=== PATIENT | female | born 1980 | race Asian ===

== ENCOUNTER 2021-08-29 22:35 | Emergency (ER) | payer OTHER ==
[2021-08-29 22:43] VITALS: TEMP 97.6; BMI 18.2
[2021-08-30 01:30] VITALS: BP 111/71; PULSE 72
== END 2021-08-30 00:35 | disposition short-term general hospital (02) ==
LOC: JER 22:35 → JERFT 22:35 → JER 08-30 00:35
DX: S60.452A Superficial foreign body of right middle finger, initial encounter (principal); W46.1XXA Contact with contaminated hypodermic needle, initial encounter
CPT/HCPCS: 99283-25

== ENCOUNTER 2024-02-19 17:29 | Emergency (ER) | payer OTHER ==
[2024-02-19 17:50] VITALS: BP 136/87; PULSE 95; RESP 18; TEMP 98.4; BMI 27.3
[2024-02-19] MEDS ORDERED: SILVER SULFADIAZINE 1% TOP CREAM 50 GM JAR TP ONE (19:24)
[2024-02-19] MEDS: SILVER SULFADIAZINE 1% TOP CREAM 50 GM JAR TP ONE (19:29)
== END 2024-02-19 20:07 | disposition home or self-care (01) ==
LOC: JERFT 17:29 → JER 17:29 → JERFT 20:07
DX: T23.131A Burn of first degree of multiple right fingers (nail), not including thumb, initial encounter (principal); T20.10XA Burn of first degree of head, face, and neck, unspecified site, initial encounter; X13.1XXA Other contact with steam and other hot vapors, initial encounter
CPT/HCPCS: 99283-25